=== PATIENT | female | born 1955 | race Caucasian/White ===

== ENCOUNTER 2018-02-04 13:34 | Outpatient (CLI) | payer MEDICAID | END 2018-02-04 23:59 | disposition home or self-care (01) | LOC: CARD DIAG 13:34 | PROVIDERS: ATTEND Internal Medicine Critical Care Medicine | DX: I35.1 Nonrheumatic aortic (valve) insufficiency (principal); R60.0 Localized edema | CPT/HCPCS: 93306 ==

== ENCOUNTER 2018-02-17 10:29 | Outpatient (CLI) | payer MEDICAID | END 2018-02-17 23:59 | disposition home or self-care (01) | LOC: 64 CT 10:29 | PROVIDERS: ATTEND Internal Medicine Critical Care Medicine | DX: R91.1 Solitary pulmonary nodule (principal); R04.2 Hemoptysis | CPT/HCPCS: 71250 ==